=== PATIENT | male | born 1995 | race Caucasian/White ===

== ENCOUNTER 2017-02-08 10:30 | Emergency (ER) | payer OTHER ==
[2017-02-08 10:44] VITALS: BP 135/87
--- NOTE | 2017-02-08 11:33 | UC ---
General HPI - HPI Summary HPI Summary: The patient comes in today for: 1. Diabetic: Onset:8 months ago. Palliative/provocative: Nothing makes his condition better or worse. Quality: polyuria, polyphagia, poly dipsia. Region: Endocrin. Severity: Random blood sugar to high to measure. Time: Associated symptoms: Event: He was diagnosed as having diabetes November 072016 in [place]. But, he was 180 pounds in June of 2016. Between June of 2016 and November of 2016 he had a slow, continued unexplained weight loss. He went to the ER on November 072016. He states that he could barely stand. Between June of 2016 and his ER visit in November, he had polydipsia and polyuria with weight loss. He did not have polyphagia. In the ER, he had a blood sugar of "over 800." He had two IV's then. He denies any medication being given at that time. He does not know if his ketones were checked. He got a prescription for Metformin 500 mg to be taking bid. He said that he had type II diabetes. He said that he would have to have lifestyle changes to control this. He did not see a PCP after that. He was referred to a doctor (type unknown PCP vs wardrobe coordinator). But, he never connected with that person. He moved up here to [facility] the end of November. HE has not seen anyone since then. He states that since his move to [facility] he has been "cutting out carbs; cut out sugar." He has not been able to do any extra exercise due to being tired. He has polydipsia and polyuria. He has polyphagia. HE states that his weight is stable at 130-135. He never took the metformin. * - History of Current Complaint Chief Complaint: UCGeneralIllness Stated Complaint: DIABETES II COMPLAINT Time Seen by Provider: 02/08/17 10:57 Hx Obtained From: Patient Pain Intensity: 0 - Allergy/Home Medications Allergies/Adverse Reactions: Allergies Allergy/AdvReac Type Severity Reaction Status Date / Time No Known Allergies Allergy Verified 02/08/17 10:33 PMH/Surg Hx/FS Hx/Imm Hx Previously Healthy: No Endocrine History Of: Reports: Diabetes - Not compliant with meds Denies: Thyroid Disease, Hyperthyroidism, Hypothyroidism, Dyslipidemia Cardiovascular History Of: Denies: Cardiac Disorders, Hypertension, Pacemaker/ICD, Myocardial Infarction , Congestive Heart Failure, Atrial Fibrillation, Deep Vein Thrombosis, Bleeding Disorders Respiratory History Of: Denies: COPD, Asthma, Bronchitis, Pneumonia, Pulmonary Embolism GI/ History Of: Denies: Gastroesophageal Reflux, Ulcer, Gastrointestinal Bleed, Gall Bladder Disease, Kidney Stones, Diverticulitis, Renal Disease, Urosepsis Neurological History Of: Denies: TIA, CVA, Dementia, Seizures, Migraine Psychological History Of: Denies: Anxiety, Depression, Bipolar Disorder, Schizophrenia, Post Traumatic Stress Disorder Cancer History Of: Denies: Lung Cancer, Colorectal Cancer, Breast Cancer, Prostate Cancer, Cervical Cancer Other History Of: Negative For: HIV, Hepatitis B, Hepatitis C, Anticoagulant Therapy - Surgical History Surgical History: None - Family History Known Family History: Positive: Diabetes Negative: Cardiac Disease, Hypertension - Social History Occupation: Unemployed Alcohol Use: Occasionally Alcohol Amount: 1-2 beer Substance Use Type: None Smoking Status (MU): Light Every Day Tobacco Smoker Type: Cigarettes When Did the Patient Quit Smoking/Using Tobacco: attempting to currently Household Exposure Type: Cigarettes - Immunization History Vaccination Up to Date: Yes Review of Systems Constitutional: Negative Skin: Rash Eyes: Negative ENT: Negative Respiratory: Negative Cardiovascular: Negative Gastrointestinal: Negative Genitourinary: Negative Motor: Negative All Other Systems Reviewed And Are Negative: Yes Physical Exam Triage Information Reviewed: Yes Appearance: Well-Appearing, No Pain Distress, Well-Nourished, Thin - Estimate: 10% body fat? Vital Signs: Initial Vital Signs Temp 99.0 F 02/08/17 10:37 Pulse 76 02/08/17 10:37 Resp 14 02/08/17 10:37 BP 135/87 02/08/17 10:37 Pulse Ox 99 02/08/17 10:37 Vital Signs Reviewed: Yes Eyes: Positive: Conjunctiva Clear. Negative: Discharge ENT: Positive: Hearing grossly normal. Negative: Pharyngeal erythema, Nasal congestion, Nasal drainage, TM bulging, TM dull, TM red, Tonsillar swelling, Tonsillar exudate Dental: Negative: Gross Decay/Caries @, Dental Fracture @ Neck: Positive: Supple, Nontender, No Lymphadenopathy. Negative: Nuchal Rigidity Respiratory: Positive: Lungs clear, No respiratory distress, No accessory muscle use. Negative: Crackles, Wheezing Cardiovascular: Positive: RRR, No Murmur Abdomen Description: Positive: Nontender, No Organomegaly, Soft. Negative: Distended, Guarding Musculoskeletal: Positive: Strength Intact, ROM Intact Neurological: Positive: Alert, Muscle Tone Normal Psychological: Positive: Age Appropriate Behavior, Consolable Skin: Positive: rashes - He has erythematous, slightly papular rash on his anterior chest. Slightly scaly, but will alexandre. Diagnostics - Laboratory Diagnostic Studies Completed/Ordered: Office blood sugar: Above 444. Office urine: 3+ glucose, 2+ ketones Course/Dx - Course Course Of Treatment: Patient was told that I recommend that he go to the ER for further evaluation. He declines going by ambulance. - Differential Dx - Multi-Symptom Provider Diagnoses: diabetes mellitus. Hyperglycemia - Physician Notifications Discussed Patient Care With: Kalyn Perez Time Discussed With Above Provider: 11:51 Discharge - Discharge Plan Condition: Stable Disposition: AGAINST MEDICAL ADVICE Referrals: Nicko AMIN,Roberto Carlos Cat [Primary Care Provider] - Additional Instructions: [place] [facility]
== END 2017-02-08 12:00 | disposition left against medical advice (07) ==
LOC: UCEAST 10:30
DX: E11.65 Type 2 diabetes mellitus with hyperglycemia (principal); Z91.14 Patient's other noncompliance with medication regimen; F17.210 Nicotine dependence, cigarettes, uncomplicated
CPT/HCPCS: 81003; 99202; G0463

== ENCOUNTER 2017-02-08 12:16 | Emergency (ER) | payer OTHER ==
[2017-02-08] MEDS ORDERED: NS 0.9% 1000 ML* 3,000 ML IV ONE (13:50)
--- NOTE | 2017-02-08 14:37 | RAD ---
INDICATION: Hyperglycemia. COMPARISON: There are no prior studies available for comparison. TECHNIQUE: A portable view of the chest was obtained. FINDINGS: Cardiac and mediastinal contours appear to be within normal limits. The lungs are clear. No pleural effusion is seen. IMPRESSION: NO EVIDENCE FOR ACUTE DISEASE.
[2017-02-08 14:40] LABS: Albumin 4.7 g/dL (3.2-5.2); Alkaline Phosphatase 62 U/L (34-104); Blood Urea Nitrogen 15 mg/dL (6-24); C Reactive Protein < 1.00 mg/L (< 5.00); CO2 Carbon Dioxide 25 mmol/L (22-32); Calcium 9.4 mg/dL (8.6-10.3); Chloride 90 mmol/L (101-111); Creatine Kinase 43 U/L (10-223); EGFR African American 130.3 (>60); EGFR Non-African American 101.3 (>60); Glucose 401 mg/dL (70-100); Hematocrit 45 % (42-52); Mean Corpuscular HGB Conc 35 g/dl (31-36); Mean Corpuscular Hemoglobin 32 pg (27-31); Mean Corpuscular Volume 92 fL (80-94); Mean Platelet Volume 9 um3 (7.4-10.4); Red Blood Count 4.95 10^6/ul (4.0-5.4); Red Cell Distribution Width 14 % (10.5-15); Sodium 129 mmol/L (133-145); Total Protein 6.7 g/dL (6.4-8.9); White Blood Count 8.1 10^3/ul (3.5-10.8)
[2017-02-08 14:41] LABS: Anion Gap 14 mmol/L (2-11); Magnesium 2.4 mg/dL (1.9-2.7); Potassium 4.6 mmol/L (3.5-5.0)
[2017-02-08 15:08] LABS: AST 13 U/L (13-39)
[2017-02-08] MEDS ORDERED: Insulin REGULAR(*) 1 UNITS UNIT IV PUSH ONE (15:36)
[2017-02-08 15:44] LABS: Venous Bicarbonate HCO3 23.6 mmol/L (24-28)
[2017-02-08 15:45] LABS: ALT 9 U/L (7-52)
[2017-02-08] MEDS ORDERED: metFORMIN* 500 MG TAB PO ONE (17:35)
[2017-02-08 17:54] VITALS: BP 103/54
--- NOTE | 2017-02-08 18:36 | ED ---
Robert Bone Alok, scribed for Akbar Ocasio MD on 02/08/17 at 1545 . HPI Diabetic - HPI Summary HPI Summary: 21 y/o male presents to the ED for DM concerns. Pt previously diagnosed with Type II diabetes 4 months ago, but after seeing UC earlier today was told he had symptoms resembling both type I and type II. Since 4 months ago, pt has lost over 50 lbs, has increased thirst and appetite as well as increased urine frequency. Pt denies URI-like symptoms, abd pain, or diarrhea. Pt is a former smoker but quit 4 months ago. Pt drinks EtOH occasionally. - History Of Current Complaint Chief Complaint: EDDiabeticProb Time Seen by Provider: 02/08/17 13:45 Hx Obtained From: Patient Onset/Duration: Gradual Onset, Lasting Weeks, Still Present Timing: Constant Severity Initially: Moderate Severity Currently: Moderate Character: Alert Aggravating: Nothing Alleviating: Medication Associated Signs & Symptoms: Weight Loss - Allergies/Home Medications Allergies/Adverse Reactions: Allergies Allergy/AdvReac Type Severity Reaction Status Date / Time No Known Allergies Allergy Verified 02/08/17 10:33 PMH/Surg Hx/FS Hx/Imm Hx Endocrine/Hematology History: Reports: Hx Diabetes - Not compliant with meds Denies: Hx Anticoagulant Therapy, Hx Thyroid Disease Cardiovascular History: Denies: Hx Congestive Heart Failure, Hx Deep Vein Thrombosis, Hx Hypertension , Hx Myocardial Infarction, Hx Pacemaker/ICD Respiratory History: Denies: Hx Asthma, Hx Chronic Obstructive Pulmonary Disease (COPD), Hx Lung Cancer, Hx Pneumonia, Hx Pulmonary Embolism GI History: Denies: Hx Gall Bladder Disease, Hx Gastrointestinal Bleed, Hx Ulcer, Hx Urosepsis History: Denies: Hx Kidney Stones, Hx Renal Disease Neurological History: Denies: Hx Dementia, Hx Migraine, Hx Seizures, Hx Transient Ischemic Attacks (TIA) Psychiatric History: Denies: Hx Anxiety, Hx Depression, Hx Schizophrenia, Hx Bipolar Disorder Infectious Disease History: No Infectious Disease History: Denies: Hx Hepatitis, Hx Human Immunodeficiency Virus (HIV), Traveled Outside the US in Last 30 Days - Family History Known Family History: Positive: Diabetes Negative: Cardiac Disease, Hypertension - Social History Occupation: Unemployed Lives: With Family - Father Alcohol Use: None Alcohol Amount: 1-2 beer Substance Use Type: Reports: None Smoking Status (MU): Light Every Day Tobacco Smoker Type: Cigarettes Review of Systems Negative: Fever ENT: Other - Negative: URI-like symptoms Gastrointestinal: Other - Weight loss, increased appetite Negative: Abdominal Pain, Diarrhea Genitourinary: Other - Increased thirst Positive: frequency All Other Systems Reviewed And Are Negative: Yes Physical Exam - Summary Physical Exam Summary: VITAL SIGNS: Reviewed. GENERAL: ~Patient is a well developed and nourished male who is lying comfortable in the stretcher. ~Patient is not in any acute respiratory distress. HEAD AND FACE: Normocephalic EYES: PERRLA, EOMI x 2. EARS: Hearing grossly intact. MOUTH: Oropharynx within normal limits. NECK: Supple, trachea is midline, no adenopathy, no JVD, no carotid bruit. CHEST: Symmetric, no tenderness at palpation LUNGS: Clear to auscultation bilaterally. No wheezing or crackles. CVS: Regular rate and rhythm, S1 and S2 present, no murmurs or gallops appreciated. ABDOMEN: Soft, non-tender. Bowel sounds are normal. No abdominal abnormal pulsations. EXTREMITIES: Full ROM in all major joints, no edema, no cyanosis or clubbing. NEURO: Alert and oriented x 3. No acute neurological deficits. Speech is normal and follows commands. SKIN: Dry and warm Triage Information Reviewed: Yes Vital Signs On Initial Exam: Initial Vitals Temp Pulse Resp BP Pulse Ox 97.2 F 70 18 134/75 100 02/08/17 12:24 02/08/17 12:24 02/08/17 12:24 02/08/17 12:24 02/08/17 12:24 Vital Signs Reviewed: Yes Diagnostics - Vital Signs Vital Signs Temp Pulse Resp BP Pulse Ox 02/08/17 15:30 67 100 02/08/17 15:00 63 104/66 100 02/08/17 14:30 66 115/67 99 02/08/17 14:20 98.1 F 67 16 130/83 100 02/08/17 14:00 72 130/83 100 02/08/17 13:52 71 99 02/08/17 13:50 121/76 02/08/17 13:40 99.4 F 73 18 101/63 98 02/08/17 12:24 97.2 F 70 18 134/75 100 - Laboratory Lab Results: Lab Results 02/08/17 02/08/17 02/08/17 Range/Units 14:13 14:13 14:13 WBC 8.1 (3.5-10.8) 10^3/ul RBC 4.95 (4.0-5.4) 10^6/ul Hgb 16.0 (14.0-18.0) g/dl Hct 45 (42-52) % MCV 92 (80-94) fL MCH 32 H (27-31) pg MCHC 35 (31-36) g/dl RDW 14 (10.5-15) % Plt Count 252 (150-450) 10^3/ul MPV 9 (7.4-10.4) um3 Neut % (Auto) 69.7 (38-83) % Lymph % (Auto) 22.2 L (25-47) % Greer % (Auto) 6.4 (1-9) % Eos % (Auto) 1.1 (0-6) % Baso % (Auto) 0.6 (0-2) % Absolute Neuts (auto) 5.6 (1.5-7.7) 10^3/ul Absolute Lymphs (auto) 1.8 (1.0-4.8) 10^3/ul Absolute Monos (auto) 0.5 (0-0.8) 10^3/ul Absolute Eos (auto) 0.1 (0-0.6) 10^3/ul Absolute Basos (auto) 0 (0-0.2) 10^3/ul Absolute Nucleated RBC 0.03 10^3/ul Nucleated RBC % 0.4 Sodium 129 L (133-145) mmol/L Potassium 4.6 (3.5-5.0) mmol/L Chloride 90 L (101-111) mmol/L Carbon Dioxide 25 (22-32) mmol/L Anion Gap 14 H (2-11) mmol/L BUN 15 (6-24) mg/dL Creatinine 0.94 (0.67-1.17) mg/dL Est GFR ( Amer) 130.3 (>60) Est GFR (Non-Af Amer) 101.3 (>60) BUN/Creatinine Ratio 16.0 (8-20) Glucose 401 H (70-100) mg/dL Lactic Acid 0.9 (0.5-2.0) mmol/L Calcium 9.4 (8.6-10.3) mg/dL Magnesium 2.4 (1.9-2.7) mg/dL Total Bilirubin 0.80 (0.2-1.0) mg/dL AST 13 (13-39) U/L ALT Pending Alkaline Phosphatase 62 (34-104) U/L Total Creatine Kinase 43 (10-223) U/L C-Reactive Protein < 1.00 (< 5.00) mg/L Total Protein 6.7 (6.4-8.9) g/dL Albumin 4.7 (3.2-5.2) g/dL Globulin 2.0 (2-4) g/dL Albumin/Globulin Ratio 2.4 (1-3) Result Diagrams: 02/08/17 14:13 02/08/17 14:13 Lab Statement: Any lab studies that have been ordered have been reviewed, and results considered in the medical decision making process. - Radiology CXR Xray Interpretation: Positive (See Comments) - IMPRESSION: NO EVIDENCE FOR ACUTE DISEASE Radiology Interpretation Completed By: Radiologist Re-Evaluation - Re-Evaluation First Eval Re-Evaluation Time: 17:41 Diabetic Course/Dx - Course Course Of Treatment: 21 y/o male presents to the ED for DM concerns. Pt previously diagnosed with Type II diabetes 4 months ago, but after seeing UC earlier today was told he had symptoms resembling both type I and type II. Since 4 months ago, pt has lost over 50 lbs, has increased thirst and appetite as well as increased urine frequency. Pt denies URI-like symptoms, abd pain, or diarrhea. Pt is a former smoker but quit 4 months ago. Pt drinks EtOH occasionally. Assessment/Plan: Bloodwork within nml limits except sodium 129 L, glucose 401 H , carbon dioxide 25, anion gap 14 H, ph 7.31 L. Pt was hydrated with 3 L IV fluid and 10 units insulin. Afterwards pt feels much improved and has no complaints. Pt is able to eat a diabetic diet. Finger-stick showed 191 H. Discussed findings and test result with pt. who has to start taking metformin 500 mg BID. Pt will follow up with PCP in next two or three days. Pt is encouraged to hydrate and eat a dietetically friendly diet. I discussed all the findings and test results with the patient. Patient was instructed to return to the emergency room immediately if any of the symptoms return or worsens. Plan of care was discussed with the patient and understands and agrees. All questions were answered at patient satisfaction. There were no further complaints or concerns. Lung exam before discharge: CTA B/L. Good air exchange. No wheezing or crackles heard. CVS: S1 and S2 present. No murmurs appreciated. Patient is alert and oriented x 3. Patient is hemodynamically stable. Patient will be discharged home with follow up travel administrator in the next 2-3 days - Diagnoses Differential Dx: Diabetic Ketoacidosis, Hyperglycemia, Hyperosmolar State Provider Diagnoses: Diabetes mellitus with hyperglycemia Discharge - Discharge Plan Condition: Stable Disposition: HOME Prescriptions: metFORMIN* [Glucophage 500 MG TAB *] 500 mg PO BID #30 tab Patient Education Materials: Diabetic Hypoglycemia (ED) Referrals: Roberto Carlos Maharaj MD [Primary Care Provider] - [facility] [Outside] The documentation as recorded by the Robert alvares Alok accurately reflects the service I personally performed and the decisions made by , Akbar Ocasio MD.
== END 2017-02-08 18:12 | disposition home or self-care (01) ==
LOC: ED 12:16
DX: E11.65 Type 2 diabetes mellitus with hyperglycemia (principal); R63.4 Abnormal weight loss
CPT/HCPCS: 36415; 71010; 80053; 82550; 82803; 83605; 83735; 85025; 86140; 99284

== ENCOUNTER 2018-07-21 11:05 | Observation (INO) | payer OTHER ==
[2018-07-21] MEDS ORDERED: NS 0.9% 1000 ML* 1,000 ML IV ONE ×2 (11:13→11:49)
--- NOTE | 2018-07-21 11:19 | ED ---
Substance Abuse/Use - HPI Summary HPI Summary: This patient is a 23 year old M AWAISA to ED with a chief complaint of overdose since last night. He says he has no recollection of what happened last night. The patient only remembers that he was at [place]. Patients friend was bringing him to the ED and pulled over to a nearby fire station because the patient was not breathing well. Fire department nearby gave him some nasal narcan (x2 given at 1010 this morning) prior to arrival of EMS. EMS reports that upon arrival, the patient was not coherent. The friend reports there was some cocaine at the [place] but does not know what the patient took last night. The patient rates the pain 0/10 in severity. Symptoms aggravated by nothing. Symptoms alleviated by nothing. Patient reports dehydration, generalized weakness, and slight abdominal pain. PMHx of DM (takes Lantus). - History Of Current Complaint Stated Complaint: OVERDOSE Time Seen by Provider: 07/21/18 11:07 Hx Obtained From: Patient Onset/Duration of Drug/ETOH Abuse: Hours Aggravating Factor(s): Nothing Alleviating Factor(s): Nothing Associated Signs And Symptoms: Other: - Patient reports dehydration, generalized weakness, and slight abdominal pain. - Allergies/Home Medications Allergies/Adverse Reactions: Allergies Allergy/AdvReac Type Severity Reaction Status Date / Time No Known Allergies Allergy Verified 02/08/17 10:33 PMH/Surg Hx/FS Hx/Imm Hx Endocrine/Hematology History: Reports: Hx Diabetes - Not compliant with meds Denies: Hx Anticoagulant Therapy, Hx Thyroid Disease Cardiovascular History: Denies: Hx Congestive Heart Failure, Hx Deep Vein Thrombosis, Hx Hypertension , Hx Myocardial Infarction, Hx Pacemaker/ICD Respiratory History: Denies: Hx Asthma, Hx Chronic Obstructive Pulmonary Disease (COPD), Hx Lung Cancer, Hx Pneumonia, Hx Pulmonary Embolism GI History: Denies: Hx Gall Bladder Disease, Hx Gastrointestinal Bleed, Hx Ulcer, Hx Urosepsis History: Denies: Hx Kidney Stones, Hx Renal Disease Neurological History: Denies: Hx Dementia, Hx Migraine, Hx Seizures, Hx Transient Ischemic Attacks (TIA) Psychiatric History: Denies: Hx Anxiety, Hx Depression, Hx Schizophrenia, Hx Bipolar Disorder Infectious Disease History: No Infectious Disease History: Denies: Hx Hepatitis, Hx Human Immunodeficiency Virus (HIV), Traveled Outside the [place] in Last 30 Days - Family History Known Family History: Positive: Diabetes Negative: Cardiac Disease, Hypertension - Social History Alcohol Use: None Alcohol Amount: 1-2 beer Substance Use Type: Reports: None Smoking Status (MU): Light Every Day Tobacco Smoker Type: Cigarettes Review of Systems Positive: Other - dehydration Positive: Abdominal Pain - slight pain Positive: Weakness - generalized All Other Systems Reviewed And Are Negative: Yes Physical Exam - Summary Physical Exam Summary: Appearance: The patient is well-nourished in no acute distress and in no acute pain. Skin: The skin is warm and dry and skin color reflects adequate perfusion. HEENT: The head is normocephalic and atraumatic. The pupils are equal and reactive and are about 2mm. The conjunctivae are clear and without drainage. Nares are patent and without drainage. Mouth reveals moist mucous membranes and the throat is without erythema and exudate. The external ears are intact. The ear canals are patent and without drainage. The tympanic membranes are intact. Neck: The neck is supple with full range of motion and non-tender. There are no carotid bruits. There is no neck vein distension. Respiratory: Chest is non-tender. Lungs are clear to auscultation and breath sounds are symmetrical and equal. Cardiovascular: Heart is tachycardic and regular rhythm. There is no murmur or rub auscultated. There is no peripheral edema and pulses are symmetrical and equal. Abdomen: The abdomen is soft and non-tender. There are normal bowel sounds heard in all four quadrants and there is no organomegaly palpated. Musculoskeletal: There is no back tenderness noted. Extremities are non-tender with full range of motion. There is good capillary refill. There is no peripheral edema or calf tenderness elicited. Neurological: Patient is alert and oriented to person, place and time. The patient has symmetrical motor strength in all four extremities. Cranial nerves are grossly intact. Deep tendon reflexes are symmetrical and equal in all four extremities. Psychiatric: The patient has an appropriate affect and does not exhibit any anxiety or depression. GCS: 15 Triage Information Reviewed: Yes Vital Signs On Initial Exam: Initial Vitals Temp Pulse Resp BP Pulse Ox 98.0 F 105 14 123/77 98 07/21/18 11:07 07/21/18 11:07 07/21/18 11:07 07/21/18 11:07 07/21/18 11:07 Vital Signs Reviewed: Yes Diagnostics - Vital Signs Vital Signs Temp Pulse Resp BP Pulse Ox 09/16/18 11:07 98.0 F 105 14 123/77 98 - Laboratory Result Diagrams: 07/21/18 16:40 07/21/18 15:00 Lab Statement: Any lab studies that have been ordered have been reviewed, and results considered in the medical decision making process. - Radiology CXR Radiology Interpretation Completed By: Radiologist - No radiographic evidence for acute cardiopulmonary abnormality on this portable chest x-ray. ED physician has reviewed this radiology report. - CT Brain CT CT Interpretation Completed By: Radiologist - Normal CT of the brain. ED physician has reviewed this radiology report. - EKG 1119 Cardiac Rate: NL - 87 BPM EKG Rhythm: Sinus Rhythm ST Segment: Non-Specific Ectopy: None EKG Interpretation: no STEMI Course/Dx - Course Course Of Treatment: Mr. Ontiveros was brought to the emergency department by EMS after being out with a friend drinking and doing cocaine and then noted by the friend to be not breathing well and hard to arouse in the morning. The friend first tried to load Mr. Ontiveros into his car and bring him to the hospital but got concerned and stopped at the fire station. The patient was given Narcan there with reported positive effect. EMS was called at that point and brought the patient in. On arrival he was mildly tachycardic with otherwise normal vital signs. He was awake and answering questions but confused. He could not remember the events of the evening. He was found to have a marked leukocytosis of 31,000, a lactic acidosis and elevated transaminases. On arrival he was given fluids and with a concern for sepsis he was given antibiotics. The hospitalist group was contacted for admission and the exercise specialist came to admit the patient. He remained stable here in the emergency department but his potassium was noted to be quite elevated and he was given calcium and insulin. He was not given glucose as his glucose was already high. - Diagnoses Differential Diagnosis/HQI/PQRI: Positive: Other - sepsis, hyperkalemia, metabolic acidosis Provider Diagnoses: Sepsis, Hyperkalemia, Metabolic acidosis - Physician Notifications Discussed Care Of Patient With: Adriana Paredes Time Discussed With Above Provider: 12:43 Instructed by Provider To: Other - Consulted Dr. Paredes who accepts the patient for admission. - Critical Care Time Critical Care Time: 30-74 min - 30 minutes Discharge - Sign-Out/Discharge Documenting (check all that apply): Patient Departure - Admit - Discharge Plan Condition: Stable Disposition: ADMITTED TO [facility] - Billing Disposition and Condition Condition: STABLE Disposition: Admitted to [facility] - Attestation Statements Document Initiated by Moni: Yes Documenting Scribe: Uvaldo Underwood Provider For Whom Terezaibe is Documenting (Include Credential): Dwayne Núñez MD Scribe Attestation: Uvaldo Bone, scribed for Dwayne Núñez MD on 07/21/18 at 2010. Scribe Documentation Reviewed: Yes Provider Attestation: The documentation as recorded by the Uvaldo alvares accurately reflects the service I personally performed and the decisions made by me, Dwayne Núñez MD
[2018-07-21 11:30] LABS: Hematocrit 53 % (42-52); Hemoglobin 18.1 g/dl (14.0-18.0); Mean Corpuscular HGB Conc 35 g/dl (31-36); Mean Corpuscular Hemoglobin 32 pg (27-31); Mean Corpuscular Volume 91 fL (80-94); Mean Platelet Volume 8.8 um3 (7.4-10.4); Platelet Count 248 10^3/ul (150-450); Red Blood Count 5.74 10^6/ul (4.00-5.40); Red Cell Distribution Width 13 % (10.5-15)
[2018-07-21 11:47] LABS: EGFR Non-African American 64.9 (>60)
[2018-07-21] MEDS ORDERED: Vancomycin(*) 1,000 MG in NS 0.9% 250 ML* 250 ML IVPB ONE (11:52)
[2018-07-21] MEDS ORDERED: Piperacillin/Tazobac ADVAN(*) 3.375 GM in NS 0.9% 100 ML* 100 ML IVPB ONE (11:52)
[2018-07-21 12:18] LABS: ABS Basophils 0.1 10^3/ul (0-0.2); ABS Eosinophils 0 10^3/ul (0-0.6); ABS Monocytes 1.9 10^3/ul (0-0.8); ABS Nucleated RBC 0 10^3/ul; Eosinophil % 0.1 % (0-6); Lymphocyte % 3.2 % (25-47); Nucleated Red Blood Cells % 0
[2018-07-21] MEDS ORDERED: Calcium Gluconate INJ* 1 GM in NS 0.9% 100 ML* 100 ML IVPB ONE (12:23)
[2018-07-21] MEDS ORDERED: Insulin REGULAR(*) 1 UNITS UNIT IV PUSH ONE (12:23)
[2018-07-21] MEDS ORDERED: NS 0.9% 100 ML* 100 ML ONE (12:45)
--- NOTE | 2018-07-21 12:54 | RAD ---
INDICATION: Altered mental status COMPARISON: None. TECHNIQUE: Contiguous axial sections of the brain were obtained from the skull base to the vertex without contrast. FINDINGS: The ventricles, cisterns and sulci are within normal limits. The saxena-white matter differentiation is adequately maintained and there is no sulcal effacement. No significant focal abnormality or mass effect is present. There is no evidence for intracranial hemorrhage. No significant focal osseous abnormality is present. The visualized portion of the paranasal sinuses appear clear. The mastoid air cells are well aerated bilaterally. IMPRESSION: Normal CT of the brain.
--- NOTE | 2018-07-21 13:01 | RAD ---
INDICATION: Altered mental status COMPARISON: Most recent comparison chest x-rays dated February 08, 2017 TECHNIQUE: Single AP portable view of the chest was obtained. FINDINGS: Image quality is compromised due to the relative inferiority of a portable chest x-ray. The heart and mediastinum exhibit normal size and contour. The lungs are grossly clear. There is no evidence of a large pleural effusion. Visualized bones are normal for the patient's age. IMPRESSION: No radiographic evidence for acute cardiopulmonary abnormality on this portable chest x-ray.
[2018-07-21] MEDS ORDERED: NS 0.9% 1000 ML* 2,000 ML IV ONE (13:13)
[2018-07-21] MEDS ORDERED: NS 0.9% 1000 ML* 1,000 ML IV SCH (13:15)
[2018-07-21] MEDS ORDERED: Ondansetron INJ* 2 MG/ML VIAL IV ONE (13:18)
[2018-07-21] MEDS ORDERED: Ondansetron INJ* 2 MG/ML VIAL IV PRN (13:19)
[2018-07-21] MEDS ORDERED: Dextrose 50% Syringe 50 ML* 25 GM/50 ML SYRINGE IV PUSH PRN (13:20)
--- NOTE | 2018-07-21 13:48 | HP ---
H&P (Free Text) History and Physical: [facility] History & Physical CC: AMS HPI: 23M with DM1 presents with ams. The patient was out drinking with friends last night. He had 10-12 beers and did what he thought was cocaine. He then became altered and was having difficulty breathing so his friends stopped at a fire station. There he was given narcan which he did not respond too. He went home and this morning his friends were having difficulty waking him up. He was brought to the ER and he was found to have markedly abnormal labs. He had an elevated lactate, elevated lfts, wbc 31, and richard. The patient was started on iv fluids. He then became nauseated and vomitted in the ER. His mental status continued to improve. He denies any other ingestions. None of the other people who he was out with became sick. He denies any fever or chills. No chest pain or shortness of breath. No cough. ROS - as per HPI PMHx - DM1 PSHx - none All - none SocHx - +smoker, binge drinker on the weekend, rare cocaine FamHx - denies PE Vital Signs: Temp Pulse Resp BP Pulse Ox 98.3 F 88 10 121/68 100 07/21/18 12:26 07/21/18 12:31 07/21/18 13:00 07/21/18 12:31 07/21/18 12:31 Gen - nad HEENT - ncat, eomi Neck - no jvd CV - s1/s2, no murmur Pulm - cta, no wheeze Abd - soft, nt Ext - no ccc, excoriations on hands Neuro - non focal Labs Laboratory Results - last 24 hr 07/21/18 07/21/18 07/21/18 11:20 11:20 11:20 WBC 31.0 H RBC 5.74 H Hgb 18.1 H Hct 53 H MCV 91 MCH 32 H MCHC 35 RDW 13 Plt Count 248 MPV 8.8 Neut % (Auto) 90.3 H Lymph % (Auto) 3.2 L [place] % (Auto) 6.2 Eos % (Auto) 0.1 Baso % (Auto) 0.2 Absolute Neuts (auto) 28.0 H Absolute Lymphs (auto) 1.0 Absolute Monos (auto) 1.9 H Absolute Eos (auto) 0 Absolute Basos (auto) 0.1 Absolute Nucleated RBC 0 Nucleated RBC % 0 ABG pH ABG pCO2 ABG pO2 ABG HCO3 ABG O2 Saturation ABG Base Excess Sodium 136 Potassium 6.4 H* Chloride 94 L Carbon Dioxide 24 Anion Gap 18 H BUN 13 Creatinine 1.36 H Est GFR ( Amer) 78.6 Est GFR (Non-Af Amer) 64.9 BUN/Creatinine Ratio 9.6 Glucose 377 H Lactic Acid 8.4 H* Calcium 9.4 Total Bilirubin 0.60 AST 873 H ALT 733 H Alkaline Phosphatase 92 Total Creatine Kinase 145 Total Protein 8.1 Albumin 5.6 H Globulin 2.5 Albumin/Globulin Ratio 2.2 Salicylates < 2.50 Acetaminophen < 15 Serum Alcohol 127 H 07/21/18 13:00 WBC RBC Hgb Hct MCV MCH MCHC RDW Plt Count MPV Neut % (Auto) Lymph % (Auto) [place] % (Auto) Eos % (Auto) Baso % (Auto) Absolute Neuts (auto) Absolute Lymphs (auto) Absolute Monos (auto) Absolute Eos (auto) Absolute Basos (auto) Absolute Nucleated RBC Nucleated RBC % ABG pH 7.24 L ABG pCO2 51 H ABG pO2 70 L ABG HCO3 19.9 ABG O2 Saturation 94.5 L ABG Base Excess -6.1 L Sodium Potassium Chloride Carbon Dioxide Anion Gap BUN Creatinine Est GFR ( Amer) Est GFR (Non-Af Amer) BUN/Creatinine Ratio Glucose Lactic Acid Calcium Total Bilirubin AST ALT Alkaline Phosphatase Total Creatine Kinase Total Protein Albumin Globulin Albumin/Globulin Ratio Salicylates Acetaminophen Serum Alcohol Imaging CXR 07/20 IMPRESSION: No radiographic evidence for acute cardiopulmonary abnormality on this portable chest x-ray. Head CT 07/20 IMPRESSION: Normal CT of the brain. EKG - NSR Impression 23M with DM1 presents with AMS 2/2 etoh and drug ingestion. Metabolic acidosis. Richard. Abnormal LFTs. Leukocytosis. hyperkalemia. Plan Neuro - AMS - 2/2 etoh and drug ingestion - resolving CV - bp ok - appears volume depleted - iv hydration Pulm - oxygenating well on room air ID - leukocytosis - afebrile - received vanc/zosyn in er - doubt infection - hold abx for now GI - abnormal lfts - 2/2 etoh/drug ingestion - send hepatitis profile - ruq sono if no improvement Renal - richard, hyperkalemia, acidosis - 2/2 dehydration and acidosis - iv hydration - serial bmp - monitor lytes Heme - leukocytosis - reactive - monitor cbc Endo - dm1, hyperglycemia - monitor fs, niss, lantus -check a1c Lines - piv PPx - gi/dvt Full Code Admit to ICU Critical Care Time: 60 mins
[2018-07-21 14:02] LABS: Urine Appearance Cloudy; Urine Blood 1+ (Negative); Urine Color Yellow; Urine Ketones Trace (Negative); Urine Protein 2+(100 mg/dL) (Negative); Urine Red Blood Cell 1+(3-5/hpf) (Absent); Urine Specific Gravity 1.014 (1.010-1.030); Urine Urobilinogen Negative (Negative); Urine White Blood Cell Trace(0-5/hpf) (Absent)
[2018-07-21 15:31] LABS: EGFR Non-African American 127.1 (>60)
[2018-07-21] MEDS ORDERED: Nicotine Inhaler* 10 MG AMP INH PRN (15:34)
[2018-07-21] MEDS ORDERED: Mouth Piece, Nicotine* 1 EACH CARTRIDGE INH PRN (15:34)
[2018-07-21] MEDS ORDERED: Magnesium Sulfate 2 GM IV* 2 GM/50 ML BAG IVPB ONE (15:35)
[2018-07-21] MEDS: NS 0.9% 1000 ML* 1,000 ML IV SCH (16:35)
[2018-07-21 17:17] LABS: ABS Basophils 0 10^3/ul (0-0.2); ABS Eosinophils 0 10^3/ul (0-0.6); ABS Monocytes 1.5 10^3/ul (0-0.8); ABS Neutrophils 16.6 10^3/ul (1.5-7.7); ABS Nucleated RBC 0 10^3/ul; Eosinophil % 0 % (0-6); Hematocrit 44 % (42-52); Hemoglobin 15.2 g/dl (14.0-18.0); Lymphocyte % 5.5 % (25-47); Mean Corpuscular HGB Conc 34 g/dl (31-36); Mean Corpuscular Hemoglobin 31 pg (27-31); Mean Corpuscular Volume 91 fL (80-94); Mean Platelet Volume 8.8 um3 (7.4-10.4); Nucleated Red Blood Cells % 0.1; Platelet Count 209 10^3/ul (150-450); Red Blood Count 4.87 10^6/ul (4.00-5.40); Red Cell Distribution Width 13 % (10.5-15); White Blood Count 19.2 10^3/ul (3.5-10.8)
[2018-07-21] MEDS: Insulin LISPRO* 1 UNITS UNIT SUBCUT SCH (19:19)
[2018-07-21] MEDS ORDERED: Insulin GLARGINE(*) 1 UNITS UNIT SUBCUT SCH (21:00)
[2018-07-21] MEDS: Famotidine TAB* 20 MG PO SCH (21:15)
[2018-07-22] MEDS: NS 0.9% 1000 ML* 1,000 ML IV SCH (00:02)
[2018-07-22] MEDS: Insulin LISPRO* 1 UNITS UNIT SUBCUT SCH ×2 (00:55→07:03)
[2018-07-22 06:16] LABS: ABS Basophils 0 10^3/ul (0-0.2); ABS Eosinophils 0.1 10^3/ul (0-0.6); ABS Nucleated RBC 0 10^3/ul; Eosinophil % 0.5 % (0-6); Hematocrit 38 % (42-52); Hemoglobin 13.4 g/dl (14.0-18.0); Lymphocyte % 7.3 % (25-47); Mean Corpuscular HGB Conc 35 g/dl (31-36); Mean Corpuscular Hemoglobin 32 pg (27-31); Mean Corpuscular Volume 90 fL (80-94); Mean Platelet Volume 8.2 um3 (7.4-10.4); Nucleated Red Blood Cells % 0; Platelet Count 144 10^3/ul (150-450); Red Blood Count 4.21 10^6/ul (4.00-5.40); Red Cell Distribution Width 13 % (10.5-15); White Blood Count 14.1 10^3/ul (3.5-10.8)
[2018-07-22 06:26] LABS: EGFR Non-African American 125.2 (>60)
--- NOTE | 2018-07-22 08:13 | DS ---
Patient Name: Jassi Ontiveros Admission Date: 07/21/18 Discharge Date: 07/22/18 Attending Physician: Carrillo Primary Care Physician: None Referring Physician: Dwayne Núñez Consulting Physician(s): None Condition on Discharge: Stable Final Diagnosis: Current Active Problems Abnormal LFTs (Acute) R94.5 Accidental drug overdose (Acute) T50.901A Acute renal failure (Acute) Diabetes type 1, controlled (Acute) E10.9 Hyperkalemia (Acute) E87.5 Lactic acidosis (Acute) E87.2 Procedures: CXR 07/20 IMPRESSION: No radiographic evidence for acute cardiopulmonary abnormality on this portable chest x-ray. Head CT 07/20 IMPRESSION: Normal CT of the brain. EKG - NSR History of Present Illness HPI: 23M with DM1 presents with ams. The patient was out drinking with friends last night. He had 10-12 beers and did what he thought was cocaine. He then became altered and was having difficulty breathing so his friends stopped at a fire station. There he was given narcan which he did not respond too. He went home and this morning his friends were having difficulty waking him up. He was brought to the ER and he was found to have markedly abnormal labs. He had an elevated lactate, elevated lfts, wbc 31, and lois. The patient was started on iv fluids. He then became nauseated and vomitted in the ER. His mental status continued to improve. He denies any other ingestions. None of the other people who he was out with became sick. He denies any fever or chills. No chest pain or shortness of breath. No cough. Laboratory/Data Laboratory Results - last 24 hr 07/21/18 07/21/18 07/21/18 11:20 11:20 11:20 WBC 31.0 H RBC 5.74 H Hgb 18.1 H Hct 53 H MCV 91 MCH 32 H MCHC 35 RDW 13 Plt Count 248 MPV 8.8 Neut % (Auto) 90.3 H Lymph % (Auto) 3.2 L [place] % (Auto) 6.2 Eos % (Auto) 0.1 Baso % (Auto) 0.2 Absolute Neuts (auto) 28.0 H Absolute Lymphs (auto) 1.0 Absolute Monos (auto) 1.9 H Absolute Eos (auto) 0 Absolute Basos (auto) 0.1 Absolute Nucleated RBC 0 Nucleated RBC % 0 ABG pH ABG pCO2 ABG pO2 ABG HCO3 ABG O2 Saturation ABG Base Excess Sodium 136 Potassium 6.4 H* Chloride 94 L Carbon Dioxide 24 Anion Gap 18 H BUN 13 Creatinine 1.36 H Est GFR ( Amer) 78.6 Est GFR (Non-Af Amer) 64.9 BUN/Creatinine Ratio 9.6 Glucose 377 H POC Glucose (mg/dL) Serum Osmolality Lactic Acid 8.4 H* Calcium 9.4 Magnesium Total Bilirubin 0.60 Direct Bilirubin Indirect Bilirubin AST 873 H ALT 733 H Alkaline Phosphatase 92 Total Creatine Kinase 145 B-Natriuretic Peptide Total Protein 8.1 Albumin 5.6 H Globulin 2.5 Albumin/Globulin Ratio 2.2 Urine Color Urine Appearance Urine pH Ur Specific [place] Urine Protein Urine Ketones Urine Blood Urine Nitrate Urine Bilirubin Urine Urobilinogen Ur Leukocyte Esterase Urine WBC (Auto) Urine RBC (Auto) Urine Bacteria Urine Glucose Urine Ascorbic Acid Salicylates < 2.50 Urine Opiates Screen Acetaminophen < 15 Ur Barbiturates Screen Ur Phencyclidine Scrn Ur Amphetamines Screen U Benzodiazepines Scrn Urine Cocaine Screen U Cannabinoids Screen Serum Alcohol 127 H 07/21/18 07/21/18 07/21/18 11:20 11:20 13:00 WBC RBC Hgb Hct MCV MCH MCHC RDW Plt Count MPV Neut % (Auto) Lymph % (Auto) [place] % (Auto) Eos % (Auto) Baso % (Auto) Absolute Neuts (auto) Absolute Lymphs (auto) Absolute Monos (auto) Absolute Eos (auto) Absolute Basos (auto) Absolute Nucleated RBC Nucleated RBC % ABG pH 7.24 L ABG pCO2 51 H ABG pO2 70 L ABG HCO3 19.9 ABG O2 Saturation 94.5 L ABG Base Excess -6.1 L Sodium Potassium Chloride Carbon Dioxide Anion Gap BUN Creatinine Est GFR ( Amer) Est GFR (Non-Af Amer) BUN/Creatinine Ratio Glucose POC Glucose (mg/dL) Serum Osmolality 337 H* Lactic Acid Calcium Magnesium Total Bilirubin Direct Bilirubin Indirect Bilirubin AST ALT Alkaline Phosphatase Total Creatine Kinase B-Natriuretic Peptide 14 Total Protein Albumin Globulin Albumin/Globulin Ratio Urine Color Urine Appearance Urine pH Ur Specific [place] Urine Protein Urine Ketones Urine Blood Urine Nitrate Urine Bilirubin Urine Urobilinogen Ur Leukocyte Esterase Urine WBC (Auto) Urine RBC (Auto) Urine Bacteria Urine Glucose Urine Ascorbic Acid Salicylates Urine Opiates Screen Acetaminophen Ur Barbiturates Screen Ur Phencyclidine Scrn Ur Amphetamines Screen U Benzodiazepines Scrn Urine Cocaine Screen U Cannabinoids Screen Serum Alcohol 07/21/18 07/21/18 07/21/18 13:51 13:51 15:00 WBC RBC Hgb Hct MCV MCH MCHC RDW Plt Count MPV Neut % (Auto) Lymph % (Auto) [place] % (Auto) Eos % (Auto) Baso % (Auto) Absolute Neuts (auto) Absolute Lymphs (auto) Absolute Monos (auto) Absolute Eos (auto) Absolute Basos (auto) Absolute Nucleated RBC Nucleated RBC % ABG pH ABG pCO2 ABG pO2 ABG HCO3 ABG O2 Saturation ABG Base Excess Sodium 141 Potassium 4.5 D Chloride 110 Carbon Dioxide 23 Anion Gap 8 BUN 10 Creatinine 0.76 Est GFR ( Amer) 153.8 Est GFR (Non-Af Amer) 127.1 BUN/Creatinine Ratio 13.2 Glucose 152 H POC Glucose (mg/dL) Serum Osmolality Lactic Acid Calcium 7.6 L Magnesium 1.5 L Total Bilirubin 0.40 Direct Bilirubin 0.10 Indirect Bilirubin 0.3 AST 562 H ALT 461 H Alkaline Phosphatase 53 Total Creatine Kinase B-Natriuretic Peptide Total Protein 5.6 L Albumin 3.9 Globulin 1.7 L Albumin/Globulin Ratio 2.3 Urine Color Yellow Urine Appearance Cloudy Urine pH 5.0 Ur Specific [place] 1.014 Urine Protein 2+(100 mg/dl) A Urine Ketones Trace A Urine Blood 1+ A Urine Nitrate Negative Urine Bilirubin Negative Urine Urobilinogen Negative Ur Leukocyte Esterase Negative Urine WBC (Auto) Trace(0-5/hpf) Urine RBC (Auto) 1+(3-5/hpf) A Urine Bacteria Absent Urine Glucose 3+(>=500 mg/dl) A Urine Ascorbic Acid * A Salicylates Urine Opiates Screen Presumptive positive A Acetaminophen Ur Barbiturates Screen None detected Ur Phencyclidine Scrn None detected Ur Amphetamines Screen None detected U Benzodiazepines Scrn None detected Urine Cocaine Screen Presumptive positive A U Cannabinoids Screen Presumptive positive A Serum Alcohol 07/21/18 07/21/18 07/21/18 15:00 16:40 18:00 WBC 19.2 H RBC 4.87 Hgb 15.2 Hct 44 MCV 91 MCH 31 MCHC 34 RDW 13 Plt Count 209 MPV 8.8 Neut % (Auto) 86.4 H Lymph % (Auto) 5.5 L [place] % (Auto) 8.0 H Eos % (Auto) 0 Baso % (Auto) 0.1 Absolute Neuts (auto) 16.6 H Absolute Lymphs (auto) 1.0 Absolute Monos (auto) 1.5 H Absolute Eos (auto) 0 Absolute Basos (auto) 0 Absolute Nucleated RBC 0 Nucleated RBC % 0.1 ABG pH ABG pCO2 ABG pO2 ABG HCO3 ABG O2 Saturation ABG Base Excess Sodium Potassium Chloride Carbon Dioxide Anion Gap BUN Creatinine Est GFR ( Amer) Est GFR (Non-Af Amer) BUN/Creatinine Ratio Glucose POC Glucose (mg/dL) 127 H Serum Osmolality Lactic Acid 3.0 H* Calcium Magnesium Total Bilirubin Direct Bilirubin Indirect Bilirubin AST ALT Alkaline Phosphatase Total Creatine Kinase B-Natriuretic Peptide Total Protein Albumin Globulin Albumin/Globulin Ratio Urine Color Urine Appearance Urine pH Ur Specific [place] Urine Protein Urine Ketones Urine Blood Urine Nitrate Urine Bilirubin Urine Urobilinogen Ur Leukocyte Esterase Urine WBC (Auto) Urine RBC (Auto) Urine Bacteria Urine Glucose Urine Ascorbic Acid Salicylates Urine Opiates Screen Acetaminophen Ur Barbiturates Screen Ur Phencyclidine Scrn Ur Amphetamines Screen U Benzodiazepines Scrn Urine Cocaine Screen U Cannabinoids Screen Serum Alcohol 07/22/18 07/22/18 07/22/18 00:00 05:54 05:54 WBC 14.1 H RBC 4.21 Hgb 13.4 L Hct 38 L MCV 90 MCH 32 H MCHC 35 RDW 13 Plt Count 144 L MPV 8.2 Neut % (Auto) 85.1 H Lymph % (Auto) 7.3 L [place] % (Auto) 7.0 Eos % (Auto) 0.5 Baso % (Auto) 0.1 Absolute Neuts (auto) 12.0 H Absolute Lymphs (auto) 1.0 Absolute Monos (auto) 1.0 H Absolute Eos (auto) 0.1 Absolute Basos (auto) 0 Absolute Nucleated RBC 0 Nucleated RBC % 0 ABG pH ABG pCO2 ABG pO2 ABG HCO3 ABG O2 Saturation ABG Base Excess Sodium 137 Potassium 4.1 Chloride 105 Carbon Dioxide 27 Anion Gap 5 BUN 10 Creatinine 0.77 Est GFR ( Amer) 151.5 Est GFR (Non-Af Amer) 125.2 BUN/Creatinine Ratio 13.0 Glucose 88 POC Glucose (mg/dL) 127 H Serum Osmolality Lactic Acid Calcium 8.4 L Magnesium 1.9 Total Bilirubin 1.00 Direct Bilirubin 0.20 H Indirect Bilirubin 0.8 AST 264 H ALT 318 H Alkaline Phosphatase 51 Total Creatine Kinase B-Natriuretic Peptide Total Protein 5.3 L Albumin 3.7 Globulin 1.6 L Albumin/Globulin Ratio 2.3 Urine Color Urine Appearance Urine pH Ur Specific [place] Urine Protein Urine Ketones Urine Blood Urine Nitrate Urine Bilirubin Urine Urobilinogen Ur Leukocyte Esterase Urine WBC (Auto) Urine RBC (Auto) Urine Bacteria Urine Glucose Urine Ascorbic Acid Salicylates Urine Opiates Screen Acetaminophen Ur Barbiturates Screen Ur Phencyclidine Scrn Ur Amphetamines Screen U Benzodiazepines Scrn Urine Cocaine Screen U Cannabinoids Screen Serum Alcohol 07/22/18 07/22/18 05:54 05:57 WBC RBC Hgb Hct MCV MCH MCHC RDW Plt Count MPV Neut % (Auto) Lymph % (Auto) [place] % (Auto) Eos % (Auto) Baso % (Auto) Absolute Neuts (auto) Absolute Lymphs (auto) Absolute Monos (auto) Absolute Eos (auto) Absolute Basos (auto) Absolute Nucleated RBC Nucleated RBC % ABG pH ABG pCO2 ABG pO2 ABG HCO3 ABG O2 Saturation ABG Base Excess Sodium Potassium Chloride Carbon Dioxide Anion Gap BUN Creatinine Est GFR ( Amer) Est GFR (Non-Af Amer) BUN/Creatinine Ratio Glucose POC Glucose (mg/dL) 83 Serum Osmolality Lactic Acid 0.8 Calcium Magnesium Total Bilirubin Direct Bilirubin Indirect Bilirubin AST ALT Alkaline Phosphatase Total Creatine Kinase B-Natriuretic Peptide Total Protein Albumin Globulin Albumin/Globulin Ratio Urine Color Urine Appearance Urine pH Ur Specific [place] Urine Protein Urine Ketones Urine Blood Urine Nitrate Urine Bilirubin Urine Urobilinogen Ur Leukocyte Esterase Urine WBC (Auto) Urine RBC (Auto) Urine Bacteria Urine Glucose Urine Ascorbic Acid Salicylates Urine Opiates Screen Acetaminophen Ur Barbiturates Screen Ur Phencyclidine Scrn Ur Amphetamines Screen U Benzodiazepines Scrn Urine Cocaine Screen U Cannabinoids Screen Serum Alcohol Hospital Course The patient was admitted to the ICU. He was treated with aggressive iv hydration. His lab work slowly improved. In the AM of 07/22/18, the patients lactic acidosis and renal failure had resolved. His LFTs and leukocytosis were imrpoving. He was able to tolerate a diet and was stable for discharge. The patient was educated on the benefits of abstaining from drugs and alcohol. He was educated about smoking cessation. He was instructed to follow up with his PMD within 1 week to have lab work repeated to ensure that they have returned to baseline. Discharge Medications Lantus 20 units SC daily Discharge Instructions Diet: Diabetic diet Activity: As tolerated Please abstain from drugs, alcohol, and tobacco. Please return to the emergency room or call 911 if any of your symptoms return. Follow up Appointments Please follow up with your PMD to have your lab work repeated within 1 week. Code Status Full Code
[2018-07-22] MEDS: Famotidine TAB* 20 MG PO SCH (08:23)
[2018-07-22] MEDS ORDERED: Insulin GLARGINE(*) 1 UNITS UNIT SUBCUT SCH (09:00)
[2018-07-22] MEDS ORDERED: Insulin LISPRO* 1 UNITS UNIT SUBCUT SCH (11:30)
[2018-07-22 11:45] VITALS: BP 118/81
== END 2018-07-22 11:43 | disposition home or self-care (01) ==
LOC: ED 11:05 → INTOOBSV 13:10 → ICU 13:10
PROVIDERS: ADMIT Nurse Practitioner Acute Care; ATTEND Internal Medicine
CPT/HCPCS: 36415; 70450; 71045; 80048; 80053; 80076; 80307; 80320; 80329; 81003; 81015; 82550; 82803; 83036; 83605; 83735; 83880; 83930; 85025; 86704; 86705; 86706; 86708; 86709; 87040; 87086; 87340; 87641; 93005; A9270-GY; G0480; J0610; J2405; J2543; J3370; J3475

== ENCOUNTER 2019-06-12 16:27 | Emergency (ER) | payer OTHER ==
[2019-06-12 17:28] VITALS: BP 136/89
--- NOTE | 2019-06-12 18:52 | UC ---
Skin Complaint HPI - HPI Summary HPI Summary: 24 yo male with arm rash x 2 days pruritic type I DM in [place] works at [employer] eating a lot - History of Current Complaint Chief Complaint: UCSkin Time Seen by Provider: 06/12/19 18:32 Stated Complaint: RASH Hx Obtained From: Patient Onset/Duration: Gradual Onset Onset Severity: Mild Current Severity: Mild Pain Intensity: 0 Pain Scale Used: 0-10 Numeric Location: Other - arms Character: Pruritus, Raised Aggravating Factor(s): Nothing Alleviating Factor(s): Nothing Associated Signs & Symptoms: Positive: Rash - Allergy/Home Medications Allergies/Adverse Reactions: Allergies Allergy/AdvReac Type Severity Reaction Status Date / Time No Known Allergies Allergy Verified 06/12/19 17:29 PMH/Surg Hx/FS Hx/Imm Hx Previously Healthy: Yes Endocrine History: Diabetes Other History Of: Negative For: HIV, Hepatitis B, Hepatitis C, Anticoagulant Therapy - Surgical History Surgical History: None - Family History Known Family History: Positive: Diabetes Negative: Cardiac Disease, Hypertension - Social History Alcohol Use: Daily Alcohol Amount: 1-2 beer Substance Use Type: Marijuana Substance Use Comment - Amount & Last Used: possible cocaine last night, history of heroin use per friend Smoking Status (MU): Light Every Day Tobacco Smoker Type: eCigarettes When Did the Patient Quit Smoking/Using Tobacco: attempting to currently Household Exposure Type: Cigarettes - Immunization History Most Recent Influenza Vaccination: never Most Recent Pneumonia Vaccination: never Vaccination Up to Date: Yes Review of Systems All Other Systems Reviewed And Are Negative: Yes Constitutional: Positive: Negative Skin: Positive: Negative Eyes: Positive: Negative ENT: Positive: Negative Respiratory: Positive: Negative Cardiovascular: Positive: Negative Gastrointestinal: Positive: Negative Genitourinary: Positive: Negative Motor: Positive: Negative Neurovascular: Positive: Negative Musculoskeletal: Positive: Negative Neurological: Positive: Negative Psychological: Positive: Negative Physical Exam Triage Information Reviewed: Yes Appearance: Well-Appearing, No Pain Distress, Well-Nourished Vital Signs: Initial Vital Signs Temp 98.8 F 06/12/19 17:25 Pulse 80 06/12/19 17:25 Resp 16 06/12/19 17:25 BP 136/89 06/12/19 17:25 Pulse Ox 100 06/12/19 17:25 Vital Signs Reviewed: Yes Eyes: Positive: Conjunctiva Clear ENT: Positive: Hearing grossly normal. Negative: Nasal congestion, Nasal drainage, Trismus, Muffled voice, Hoarse voice Neck: Positive: Supple, Nontender, No Lymphadenopathy Respiratory: Positive: Lungs clear, Normal breath sounds, No respiratory distress Cardiovascular: Positive: RRR, No Murmur Musculoskeletal Exam: Normal Musculoskeletal: Positive: ROM Intact, No Edema Neurological: Positive: Alert Psychological Exam: Normal Skin: Positive: Rashes - both arms c/w contact dermatitis Course/Dx - Diagnoses Provider Diagnosis: Contact dermatitis, Elevated BP without diagnosis of hypertension Discharge - Sign-Out/Discharge Documenting (check all that apply): Patient Departure All imaging exams completed and their final reports reviewed: No Studies - Discharge Plan Condition: Stable Disposition: HOME Prescriptions: Triamcinolone 0.5% CREAM(NF) [Triamcinolone 0.5% CREAM*] 1 applic TOPICAL QID 14 Days #60 tube Patient Education Materials: Contact Dermatitis (ED) Referrals: No Primary Care Phys,NOPCP [Primary Care Provider] - [facility] [Outside] - 2 Weeks (I suggest you find a local MD ) Additional Instructions: don't apply cr to face recheck if rash worsens you can take oral benadryl for itch - Billing Disposition and Condition Condition: STABLE Disposition: Home
== END 2019-06-12 19:10 | disposition home or self-care (01) ==
LOC: UCEAST 16:27
DX: L25.9 Unspecified contact dermatitis, unspecified cause (principal); R03.0 Elevated blood-pressure reading, without diagnosis of hypertension; E11.9 Type 2 diabetes mellitus without complications; F17.210 Nicotine dependence, cigarettes, uncomplicated
CPT/HCPCS: 99212; G0463

== ENCOUNTER 2024-11-06 07:53 | Inpatient (IN) ==
[2024-11-06] MEDS: Ondansetron 4 mg VIAL 2 MG/ML 2 ml VIAL IV ONE ×2 (08:38→18:24)
[2024-11-06] MEDS: NS 0.9% 1000 ml BAG 2,000 ML IV ONE (08:38)
[2024-11-06 08:43] LABS: Venous Bicarbonate HCO3 11.7 mmol/L (24-28)
[2024-11-06 08:48] LABS: Hematocrit 49.7 % (38-53); Hemoglobin 17.5 g/dL (13.2-16.3); Mean Corpuscular Hemoglobin 32.9 pg (27-33); Mean Corpuscular Hgb Conc 35.2 g/dL (31-36); Mean Corpuscular Volume 93.6 fL (80-97); Mean Platelet Volume 9.4 fL (7.5-11.2); Platelet Count 368 10^3/uL (150-450); Red Blood Count 5.31 10^6/uL (4.06-5.63); Red Cell Distribution Width 13.3 % (12-17); White Blood Count 29.1 10^3/uL (3.6-10.2)
[2024-11-06] MEDS: Morphine 4 MG/ML VIAL (1 ml) IV ONE (09:24)
[2024-11-06 09:37] LABS: ABS Basophils 0.1 10^3/uL (0.0-0.1); ABS Lymphocytes 1.7 10^3/uL (1.0-4.8); ABS Monocytes 1.2 10^3/uL (0.0-1.1); ABS Neutrophils 26.1 10^3/uL (1.5-7.6); ABS Nucleated RBC 0.04 10^3/ul; Lymphocyte % 5.7 %; Nucleated Red Blood Cells % 0.1 %/100WBC (0.0-0.8)
[2024-11-06 09:43] LABS: ALT 67 U/L (7-52); Albumin 5.6 g/dL (3.5-5.7); Albumin/Globulin Ratio 1.9 (1-3); Alkaline Phosphatase 92 U/L (35-149); Blood Urea Nitrogen 20 mg/dL (6-24); C Reactive Protein 2.38 mg/L (<8.01); CO2 Carbon Dioxide 13 mmol/L (22-32); Calcium 10.1 mg/dL (8.6-10.3); Chloride 85 mmol/L (101-111); Creatinine, Serum 1.37 mg/dL (0.67-1.17); Globulin 2.9 g/dL (2-4); Glucose 462 mg/dL (70-100); Sodium 128 mmol/L (135-145); Total Bilirubin 0.9 mg/dL (0.2-1.0); Total Protein 8.5 g/dL (6.4-8.9); eGFR CKD-EPI 71.6 (>60)
[2024-11-06] MEDS: Prochlorperazine 5 mg/ml 2 ml VIAL (10 mg) IV ONE (09:44)
[2024-11-06 10:10] LABS: AST 37 U/L (13-39); Anion Gap 30 mmol/L (2-16)
[2024-11-06] MEDS ORDERED: Dextrose 50% Syringe 50 ml 25 GM/50 ML SYRINGE IV PUSH PRN (10:16)
[2024-11-06] MEDS ORDERED: Droperidol 5 MG/2 ML 2 ML VIAL IV ONE (11:13)
[2024-11-06] MEDS: Haloperidol 5 mg/ml SDV IV/IM 5 MG/ML AMP IV SLOW PU ONE (11:24)
[2024-11-06] MEDS: NS 0.9% 1000 ml BAG 1,000 ML IV ONE (11:24)
[2024-11-06] MEDS: Insulin Infusion 100unit/100mL 100 UNIT/100 ML BAG IV SCH ×2 (11:29→17:27)
[2024-11-06 12:02] LABS: Urine Appearance Clear; Urine Bilirubin Negative (Negative); Urine Blood Negative (Negative); Urine Color Colorless; Urine Glucose 4+ (>=1000 mg/dL) (Negative); Urine Ketones 4+ (Negative); Urine Nitrite Negative (Negative); Urine Protein Trace (Negative); Urine Urobilinogen Negative (Negative)
[2024-11-06 12:08] LABS: Urine Benzodiazepine Screen None Detected (None Detect); Urine Cannabinoids Screen Presumptive Positive (None Detect); Urine Opiates Screen Presumptive Positive (None Detect)
[2024-11-06] MEDS: Lactated Ringers 1000 ml BAG 1,000 ML IV ONE (12:58)
[2024-11-06] MEDS: D5LR 20 MEQ KCL 1000 ml BAG 1,000 ML IV SCH ×2 (14:30→15:43)
[2024-11-06 15:00] LABS: Calcium 8.1 mg/dL (8.6-10.3); Creatinine, Serum 1.13 mg/dL (0.67-1.17); Magnesium 1.9 mg/dL (1.9-2.7); Phosphorus 2.4 mg/dL (2.5-5.0); Potassium 4.7 mmol/L (3.5-5.0); eGFR CKD-EPI 90.2 (>60)
[2024-11-06] MEDS: Dextrose 50% Syringe 50 ml 25 GM/50 ML SYRINGE IV PUSH ONE (15:52)
[2024-11-06] MEDS: Potassium Phosphate IV 15 MMOL in NS 0.9% 250 ml 250 ML IVPB ONE (16:07)
[2024-11-06 17:27] LABS: Blood Urea Nitrogen 14 mg/dL (6-24); CO2 Carbon Dioxide 16 mmol/L (22-32); Calcium 8.6 mg/dL (8.6-10.3); Chloride 101 mmol/L (101-111); Creatinine, Serum 1.16 mg/dL (0.67-1.17); Glucose 338 mg/dL (70-100); Sodium 131 mmol/L (135-145); eGFR CKD-EPI 87.4 (>60)
[2024-11-06] MEDS: D10W 1000 ml BAG 1,000 ML IV SCH ×2 (17:27→17:35)
[2024-11-06] MEDS: KCL 20 MEQ/100 ML IVPREMIX 20 MEQ/100 ML BAG IV ONE (17:29)
[2024-11-06 17:30] LABS: Anion Gap 14 mmol/L (2-16)
[2024-11-06 18:42] LABS: Calcium 8.6 mg/dL (8.6-10.3); Creatinine, Serum 1.07 mg/dL (0.67-1.17); Magnesium 1.9 mg/dL (1.9-2.7); Phosphorus 1.6 mg/dL (2.5-5.0); Potassium 5.3 mmol/L (3.5-5.0); Potassium Redraw 5.4 mmol/L (3.5-5.0); eGFR CKD-EPI 96.3 (>60)
[2024-11-06] MEDS: Ondansetron 4 mg VIAL 2 MG/ML 2 ml VIAL ONE (21:12)
[2024-11-06] MEDS: Ondansetron 4 mg VIAL 2 MG/ML 2 ml VIAL IV PRN (21:12)
[2024-11-06] MEDS: D5W 1/2 NS 1000 ml BAG 1,000 ML IV SCH (21:16)
[2024-11-06 22:10] LABS: Blood Urea Nitrogen 11 mg/dL (6-24); CO2 Carbon Dioxide 21 mmol/L (22-32); Calcium 8.7 mg/dL (8.6-10.3); Chloride 102 mmol/L (101-111); Glucose 234 mg/dL (70-100); Sodium 132 mmol/L (135-145); eGFR CKD-EPI 118.6 (>60)
[2024-11-06 22:51] LABS: Potassium, Whole Blood 4.5 mmol/L (3.4-4.5)
[2024-11-06 22:53] LABS: Anion Gap 9 mmol/L (2-16)
[2024-11-06 22:57] VITALS: BP 142/72
== END 2024-11-06 22:20 | disposition left against medical advice (07) | DRG 639 ==
LOC: ED 07:53 → EDHOLD 11:07 → ICU 14:09
PROVIDERS: ADMIT Internal Medicine Pulmonary Disease; ATTEND Internal Medicine